=== PATIENT | female | born 2000 ===

== ENCOUNTER 2021-05-20 10:19 | Inpatient (IN) | payer OTHER ==
[~2021-05-20] VITALS: Ht 165.1 cm; Wt 72.6 kg
[~2021-05-20 10:19] MED LIST: SINGULAIR10 MG PO; [UNRECOGNIZED DRUG - OTHER] PO
== END 2021-05-26 21:19 | disposition home or self-care (01) | DRG 145 ==
LOC: CIR.AMB 10:19 → SURG 20:27 → O/R 20:27 → SURH 22:48 → O/R 05-21 03:12 → SURG 05-21 10:10
PROVIDERS: ADMIT Otolaryngology; ATTEND Otolaryngology
PROC: 0CTQ0ZZ Resection of Adenoids, Open Approach (ICD-10-PCS; 2021-05-20)
PROC: 0CBN0ZZ Excision of Uvula, Open Approach (ICD-10-PCS; 2021-05-20)
PROC: 0CTPXZZ Resection of Tonsils, External Approach (ICD-10-PCS; principal; 2021-05-20 15:15)
PROC: 4A12X4Z Monitoring of Cardiac Electrical Activity, External Approach (ICD-10-PCS; 2021-05-22)
PROC: 30233N1 Transfusion of Nonautologous Red Blood Cells into Peripheral Vein, Percutaneous Approach (ICD-10-PCS; 2021-05-23)
PROC: 093K7ZZ Control Bleeding in Nasal Mucosa and Soft Tissue, Via Natural or Artificial Opening (ICD-10-PCS; 2021-05-24)
DX: G47.33 Obstructive sleep apnea (adult) (pediatric) (principal); J34.89 Other specified disorders of nose and nasal sinuses; J35.3 Hypertrophy of tonsils with hypertrophy of adenoids; R00.0 Tachycardia, unspecified; R04.0 Epistaxis; D64.89 Other specified anemias; Z20.822 Contact with and (suspected) exposure to COVID-19